=== PATIENT | male | born 1990 | race Caucasian/White ===

== ENCOUNTER 2021-09-18 03:37 | Emergency (ER) | payer OTHER ==
[~2021-09-18] VITALS: Ht 182.9 cm; Wt 81.7 kg
--- NOTE | 2021-09-18 04:07 | PHYS DOC ---
Past History Past Medical History: No Pertinent History Past Surgical History: No Surgical History Smoking: Cigarettes Alcohol Use: Rarely Drug Use: None General Adult EDM: Chief Complaint: ABDOMINAL PAIN HPI: HPI: Patient is a 31 year old male who presents with c/o abdominal pain today. Patient states that about four hours ago he started having intermittent episodes of sharp, stabbing 7/10 LLQ abdominal pain that radiates into the groin. He said the episodes last a few minutes before resolving to a 2/10 pain then return about 10 minutes later. He reports some nausea and urinary hesitancy but denies any dysuria, fevers/chills, hematuria, constipation, flank pain or testicular pain. He reports significant caffeine consumption but states that he drinks an adequate amount of water in the day with a healthy diet. Denies any recent strenuous activities. Nothing he does makes the pain worse and nothing he can do to help relieve his symptoms. Review of Systems: Review of Systems: Constitutional: Denies fever or chills Eyes: Denies redness or eye pain HENT: Denies nasal congestion or sore throat Respiratory: Denies cough or shortness of breath Cardiovascular: Denies chest pain or palpitations GI: Reports abdominal pain and nausea but denies vomiting, constipation or flank pain : Denies dysuria or hematuria; reports urinary hesitancy Musculoskeletal: Denies back pain or joint pain Integument: Denies rash or skin lesions Neurologic: Denies headache, focal weakness or sensory changes Complete systems were reviewed and found to be within normal limits, except as documented in this note. Current Medications: Current Meds: Current Medications Medications (Trade) Dose Ordered Sig/[facility] Start Time Stop Time Status Last Admin Dose Admin Famotidine (Pepcid Vial) 20 mg 1X ONCE 09/18/21 04:00 09/18/21 04:01 Ketorolac Tromethamine (Toradol 15mg Vial) 15 mg 1X ONCE 09/18/21 04:00 09/18/21 04:01 Ondansetron HCl (Zofran) 4 mg 1X ONCE 09/18/21 04:00 09/18/21 04:01 Sodium Chloride 1,000 ml @ 1,000 mls/hr 1X ONCE 09/18/21 04:00 09/18/21 04:59 Allergies: Allergies: Allergies Coded Allergies Type Severity Reaction Last Updated Verified No Known Drug Allergies 09/18/21 No Physical Exam: PE: Constitutional: Well developed, well nourished, no acute distress, non-toxic appearance HENT: Normocephalic, atraumatic Eyes: PERRL, EOMI, conjunctiva normal, no discharge Neck: Normal range of motion, no tenderness, supple Lungs & Thorax: No respiratory distress, equal chest rise and fall Abdomen: Soft, mild tenderness to palpation to the LLQ, normoactive BS x4 quadrants Skin: Warm, dry, no erythema, no rash Back: No tenderness, no CVA tenderness Extremities: No tenderness, ROM intact, no edema Neurologic: Alert and oriented X 3, normal motor function, normal sensory function, no focal deficits noted Psychologic: Affect normal, judgment normal Current Patient Data: Vital Signs: Vital Signs Date Time Temp Pulse Resp B/P (MAP) Pulse Ox O2 Delivery O2 Flow Rate FiO2 09/18/21 03:42 98.0 97 16 143/93 (110) 99 Room Air Radiology/Procedures: Radiology/Procedures: PROCEDURE: CT ABDOMEN PELVIS WO CONTRAST CT ABDOMEN+PELVIS WO History: Left lower quadrant/flank pain. Evaluate for kidney stone. Comparison: None. Technique: Noncontrast CT of abdomen and pelvis. Findings: The lung bases are clear. The liver, gallbladder, pancreas, is between, and adrenal glands are unremarkable. There is nonobstructing right nephrolithiasis with stones measuring up to 2 mm diameter. No left nephrolithiasis is identified. No left hydronephrosis. There is a 4 mm calcification which is favored to reside within the left mid to distal ureter although the ureter is not well visualized at this level. There is no proximal hydroureter. The bladder is decompressed. Central prostatic calcifications. The stomach and small bowel are unremarkable. Normal appendix. Mild colonic stool burden. No colonic wall thickening or pericolonic inflammatory changes. No intra-abdominal free air or free fluid. The unopacified vasculature is unremarkable. No adenopathy. Soft tissues are within normal limits. Transitional lumbosacral anatomy with partial lumbarization of the S1 vertebral body. No acute osseous abnormality. Impression: 1. 4 mm calcification the region of the left mid to distal ureter is favored to represent nonobstructing ureteral less, however the ureter is not well delineated at this level. No left hydronephrosis or proximal hydroureter. 2. Nonobstructing punctate right nephrolithiasis. ------ Exposure: One or more of the following individualized dose reduction techniques were utilized for this examination: 1. Automated exposure control 2. Adjustment of the mA and/or kV according to patient size 3. Use of iterative reconstruction technique. Electronically signed by: Logan Dwyer MD (09/18/2021 5:10 AM) [facility] Heart Score: C/O Chest Pain: N/A Course & Med Decision Making: Course & Med Decision Making Pertinent Labs and Imaging studies reviewed. (See chart for details) 31 y/o male with c/o LLQ abdominal pain concerning for urolithiasis. CT scan shows 4mm nonobstructing urolithiasis without hydronephrosis or evidence of EILEEN on CMP. Patient pain has been well controlled with ketorlac in the ED and received 1L fluids. Will be discharged home with Flomax. Given return precautions for worsening pain, fevers/chills or difficulty urinating. Patient stable for discharge with outpatient follow-up with PCP. Discussed findings and plan with patient, who acknowledges understanding and agreement. West Disclaimer: West Disclaimer: This electronic medical record was generated, in whole or in part, using a voice recognition dictation system. Departure Departure: Impression: Primary Impression: Kidney stone on left side Disposition: HOME / SELF CARE / HOMELESS Condition: STABLE Referrals: VANDANA STRATTON DO (PCP) Patient Instructions: Diet for Kidney Stones, Kidney Stones, [id number] Additional Instructions: Increase fluid hydration. May also use [id number] ibuprofen as needed for pain or discomfort. Scripts Hydrocodone Bit/Acetaminophen (HYDROCODONE-APAP 5-325 ) 1 Each Tablet 0.5 TAB PO PRN Q6HRS PRN for PAIN, #14 TAB 0 Refills Prov: STEPHANIE SHERMAN DO 09/18/21 Ondansetron (ONDANSETRON ODT) 4 Mg Tab.rapdis 1 TAB PO PRN Q6-8HRS PRN for NAUSEA, #16 TAB Prov: STEPHANEI SHERMAN DO 09/18/21 Tamsulosin Hcl (FLOMAX) 0.4 Mg Cap.er.24h 1 CAP PO DAILY for kidney stone, #7 CAP Prov: STEPHANIE SHERMAN DO 09/18/21 STEPHANIE SHERMAN DO Sep 18, 2021 04:07
[2021-09-18] MEDS: IV NORMAL SALINE 1,000ML 1,000 ML IV ONE (04:14)
[2021-09-18] MEDS: KETOROLAC 15 MG/ML VIAL. IVP ONE (04:15)
[2021-09-18] MEDS: FAMOTIDINE 20 MG/2 ML VIAL IVP ONE (04:17)
[2021-09-18] MEDS: ONDANSETRON PF 4 MG/2 ML VIAL. IVP ONE (04:18)
[2021-09-18 04:29] LABS: BASO # 0.1 x10^3/uL (0.0-0.2); BASO % 1 % (0-3); EOS # 0.1 x10^3/uL (0.0-0.7); EOS % 1 % (0-3); HEMATOCRIT 47.1 % (39.0-53.0); HEMOGLOBIN 15.6 g/dL (13.0-17.5); LYMPH % 12 % (24-48); MEAN CORPUSCULAR HEMOGLOBIN 30 pg (25-35); MEAN CORPUSCULAR HGB CONC 33 g/dL (31-37); MEAN CORPUSCULAR VOLUME 91 fL (79-100); MONO # 0.5 x10^3/uL (0.0-1.1); MONO % 5 % (0-9); NEUT # 7.3 x10^3uL (1.8-7.7); NEUT % 82 % (31-73); PLATELET COUNT 263 x10^3/uL (140-400); RED CELL DISTRIBUTION WIDTH 13.2 % (11.5-14.5)
[2021-09-18 04:37] LABS: CALCIUM 9.4 mg/dL (8.5-10.1); CREATININE 0.9 mg/dL (0.7-1.3); GFR 99.1; POTASSIUM 4.3 mmol/L (3.5-5.1)
[2021-09-18 04:40] LABS: ALBUMIN 4.6 g/dL (3.4-5.0); ALBUMIN/GLOBULIN RATIO 1.5 (1.0-1.7); MAGNESIUM 1.9 mg/dL (1.8-2.4); TOTAL BILIRUBIN 0.3 mg/dL (0.2-1.0); TOTAL PROTEIN 7.7 g/dL (6.4-8.2)
[2021-09-18 04:43] LABS: BACTERIA,URINE 0 /HPF (0-FEW); CLARITY,URINE CLEAR; COLOR,URINE YELLOW; GLUCOSE,URINE NEG (NEG); NITRITE,URINE NEG (NEG); RBC,URINE >40 /HPF (0-2); SQUAMOUS EPITHELIAL CELL,UR OCC /LPF; UROBILINOGEN,URINE 0.2 mg/dL (0.2 mg/dL); WBC,URINE 0 /HPF (0-4)
--- NOTE | 2021-09-18 05:13 | RAD ---
CT ABDOMEN+PELVIS WO History: Left lower quadrant/flank pain. Evaluate for kidney stone. Comparison: None. Technique: Noncontrast CT of abdomen and pelvis. Findings: The lung bases are clear. The liver, gallbladder, pancreas, is between, and adrenal glands are unrema rkable. There is nonobstructing right nephrolithiasis with stones measuring up to 2 mm diameter. No left neph rolithiasis is identified. No left hydronephrosis. There is a 4 mm calcification which is favored to reside within the left mid to distal ureter although the ureter is not well visualized at this level. There is no proximal hydroureter. The bladder is decompressed. Central prostatic calcifications. The stomach and small bowel are unremarkable. Normal appendix. Mild colonic stool burden. No colonic wall thickening or pericolonic inflammatory changes. No intra-abdominal free air or free fluid. The unopacified vasculature is unremarkable. No adenopathy . Soft tissues are within normal limits. Transitional lumbosacral anatomy with partial lumbarization of the S1 vertebral body. No acute osseous abnormality. Impression: 1. 4 mm calcification the region of the left mid to distal ureter is favored to represent nonobstruc ting ureteral less, however the ureter is not well delineated at this level. No left hydronephrosis o r proximal hydroureter. 2. Nonobstructing punctate right nephrolithiasis. ------ Exposure: One or more of the following individualized dose reduction techniques were utilized for thi s examination: 1. Automated exposure control 2. Adjustment of the mA and/or kV according to patient size 3. Use of iterative reconstruction technique. Electronically signed by: Logan Dwyer MD (09/18/2021 5:10 AM) [facility]
[2021-09-18] MEDS ORDERED: TAMSULOSIN 0.4 MG CAP.ER.24H. PO ONE (05:29)
[2021-09-18] MEDS ORDERED: ONDA4TAB12 PO (05:30)
[2021-09-18] MEDS ORDERED: HYDR-2155 PO (05:30)
[2021-09-18] MEDS ORDERED: TAMS0.4C97 PO (05:30)
[2021-09-18] MEDS: TAMSULOSIN 0.4 MG CAP.ER.24H. PO ONE (05:31)
[2021-09-18 05:59] VITALS: BP 138/72
== END 2021-09-18 06:00 | disposition home or self-care (01) ==
LOC: ER 03:37
DX: N20.0 Calculus of kidney (principal); F17.210 Nicotine dependence, cigarettes, uncomplicated
CPT/HCPCS: 36415; 74176; 80053; 81001; 83690; 83735; 85025; 96361; 96374; 96375; 99284; J1885; J2405; J3490; J7030